=== PATIENT | male | born 1960 | race Caucasian/White ===

== ENCOUNTER 2021-07-26 13:25 | Day surgery (SDC) | payer BC ==
[2021-07-25 13:03] VITALS: BMI 26.9
[2021-07-26] MEDS ORDERED: LACTATED RINGERS 1,000 ML IV SCH (13:32)
[2021-07-26] MEDS ORDERED: LACTATED RINGERS 1,000 ML IV ONE (13:37)
[2021-07-26] MEDS ORDERED: PROPOFOL 10 MG/ML 20 ML VIAL IV ONE (14:15)
--- NOTE | 2021-07-26 14:52 | P.PCN ---
Date of Procedure: 07/26/21 Procedure(s) Performed: BRIEF HISTORY: Patient is a 60-year-old pleasant male scheduled for an elective colonoscopy as a part of follow-up of large polyp on the ileocecal valve noted on a routine screening colonoscopy 5 months ago. Biopsies revealed adenoma. PROCEDURE PERFORMED: Colonoscopy with snare polypectomy, argon plasma coagulation and Endo Clip placement. PREOPERATIVE DIAGNOSIS: Follow-up large polyp on the ileocecal valve noted on a recent colonoscopy 5 months. IV sedation per Anesthesia. PROCEDURE: After informed consent was obtained, the patient, was brought into the endoscopy unit. IV sedation was administered by Anesthesia under continuous monitoring. Digital rectal examination was normal. Initially the Olympus CF-160 flexible video colonoscope was then inserted in the rectum, gradually advanced into the cecum without any difficulty. Careful examination was performed as the scope was gradually being withdrawn. Ileocecal valve and the appendiceal orifice were visualized and appeared normal. Prep was excellent. On the ileocecal valve there was a 3 cm broad-based polyp identified which was removed by snare polypectomy followed by argon plasma coagulation and Endo Clip placement. Complete polypectomy was accomplished. In the ascending colon there was a 1 cm flat polyp removed by snare polypectomy. Rest of the transverse colon, descending colon, sigmoid colon, and rectum appeared normal. Retroflexion was performed in the rectum and no lesions were seen. The patient tolerated the procedure well. IMPRESSION: 3 cm broad-based polyp on the ileocecal valve status post snare polypectomy followed by argon plasma coag ablation and Endo Clip placement and complete polypectomy accomplished 1 cm flat polyp in the ascending colon status post snare polypectomy RECOMMENDATIONS: Findings of this examination were discussed with the patient as well as his family. He was advised to follow with the biopsy results. He'll be seen in office in a week from now and based the biopsy results will plan a repeat colonoscopy in 3-6 months.
[2021-07-26 15:10] VITALS: BP 97/59; PULSE 98; RESP 16
== END 2021-07-26 15:42 | disposition home or self-care (01) ==
LOC: ORWHC2ENDO 13:25
PROVIDERS: ATTEND Internal Medicine Gastroenterology
DX: D12.2 Benign neoplasm of ascending colon (principal); I10 Essential (primary) hypertension; E78.5 Hyperlipidemia, unspecified; Z86.010 Personal history of colon polyps
CPT/HCPCS: 45382; 45385; 45388; J2704; 88305